=== PATIENT | male | born 1995 | race Two or more races ===

== ENCOUNTER 2020-10-26 18:55 | Emergency (ER) | payer MEDICAID ==
[~2020-10-26] VITALS: Ht 177.8 cm; Wt 79.0 kg
[2020-10-26] MEDS ORDERED: ACETAMINOPHEN 500MG TABLET PO ONE (21:45)
[2020-10-26] MEDS ORDERED: OLANZAPINE 10 MG/VIAL IM ONE (21:45)
[2020-10-26 22:02] LABS: HEMATOCRIT. 35.8 % (42.0-52.0); HEMOGLOBIN. 11.8 g/dL (14.0-18.0); MEAN CORPUSCULAR HEMOGLOBIN 27.3 pg (28.0-32.0); MEAN CORPUSCULAR VOLUME 83.2 fL (80.0-94.0); MEAN PLATELET VOLUME 7.3 fl (7.4-10.4); PLATELET 237 x1000/uL (130-400)
[2020-10-26 22:08] LABS: CHLORIDE 105 mEq/L (98-107)
[2020-10-26 22:14] LABS: ETHANOL BLOOD < 10 mg/dL
[2020-10-26 22:30] LABS: PLATELET ESTIMATE NORMAL
[2020-10-27] MEDS ORDERED: IMIQ1CRE TP (02:21)
[2020-10-27 04:26] LABS: CLARITY URINE CLEAR (CLEAR); COLOR URINE YELLOW (YELLOW); KETONES URINE NEGATIVE (NEGATIVE); LEUKOCYTE ESTERASE URINE NEGATIVE (NEGATIVE); NITRITE URINE NEGATIVE (NEGATIVE); OCCULT BLOOD URINE NEGATIVE (NEGATIVE); PH URINE 6.5 (4.5-8.0); PROTEIN URINE NEGATIVE (NEGATIVE); SPECIFIC GRAVITY URINE 1.011 (1.005-1.030); UROBILINOGEN URINE 0.2 E.U./dL (0.2-1.0)
[2020-10-27 04:35] LABS: *AMPHETAMINES SCREEN URINE PRESUMTIVE POSITIVE (NEGATIVE); *BARBITURATES SCREEN URINE NEGATIVE (NEGATIVE)
[2020-10-27 04:36] LABS: *BENZODIAZEPINES SCREEN URINE NEGATIVE (NEGATIVE); *COCAINE SCREEN URINE NEGATIVE (NEGATIVE); OPIATES URINE SCREEN NEGATIVE (NEGATIVE); PHENCYCLIDINE URINE SCREEN NEGATIVE (NEGATIVE)
[2020-10-27 04:37] LABS: CANNABINOID URINE SCREEN NEGATIVE (NEGATIVE); METHADONE URINE SCREEN NEGATIVE (NEGATIVE)
[2020-10-27] MEDS ORDERED: ACETAMINOPHEN 500MG TABLET PO ONE (05:00)
[2020-10-28 11:19] VITALS: BP 115/75
== END 2020-10-28 11:35 | disposition home or self-care (01) ==
LOC: ER 19:03
DX: A63.0 Anogenital (venereal) warts (principal); R45.850 Homicidal ideations
CPT/HCPCS: 36415; 80053; 80320; 85025; 96372; 99285; J3490; G0480

== ENCOUNTER 2020-11-26 10:02 | Emergency (ER) | payer MEDICAID ==
[~2020-11-26] VITALS: Ht 172.7 cm; Wt 68.0 kg
[~2020-11-26 10:02] MED LIST: IMIQ1CRE TP
[2020-11-26 11:00] LABS: CHLORIDE 106 mEq/L (98-107)
[2020-11-26 11:05] LABS: ETHANOL BLOOD < 10 mg/dL
[2020-11-26 11:06] LABS: BASOPHILS % 0.4 % (0.0-2.0); EOSINOPHILS % 3.2 % (0.0-5.0); HEMATOCRIT. 36.3 % (42.0-52.0); HEMOGLOBIN. 12.5 g/dL (14.0-18.0); LYMPHOCYTES % 39.2 % (20.0-50.0); MEAN CORPUSCULAR VOLUME 81.6 fL (80.0-94.0); MEAN PLATELET VOLUME 7.2 fl (7.4-10.4); MONOCYTES % 8.6 % (2.0-8.0); NEUTROPHILS % 48.6 % (40.0-76.0); PLATELET 310 x1000/uL (130-400); RED BLOOD CELL COUNT 4.45 mill/uL (4.7-6.1); RED CELL DISTRIBUTION WIDTH 14.5 % (11.6-14.6)
[2020-11-26 11:47] LABS: CLARITY URINE CLEAR (CLEAR); COLOR URINE YELLOW (YELLOW); KETONES URINE TRACE (NEGATIVE); LEUKOCYTE ESTERASE URINE 1+ (NEGATIVE); NITRITE URINE NEGATIVE (NEGATIVE); OCCULT BLOOD URINE NEGATIVE (NEGATIVE); PROTEIN URINE NEGATIVE (NEGATIVE); SPECIFIC GRAVITY URINE 1.022 (1.005-1.030)
[2020-11-26 12:25] LABS: *AMPHETAMINES SCREEN URINE PRESUMTIVE POSITIVE (NEGATIVE); *BARBITURATES SCREEN URINE NEGATIVE (NEGATIVE); *BENZODIAZEPINES SCREEN URINE NEGATIVE (NEGATIVE); *COCAINE SCREEN URINE NEGATIVE (NEGATIVE); METHADONE URINE SCREEN NEGATIVE (NEGATIVE)
[2020-11-26 12:26] LABS: CANNABINOID URINE SCREEN NEGATIVE (NEGATIVE); OPIATES URINE SCREEN NEGATIVE (NEGATIVE); PHENCYCLIDINE URINE SCREEN NEGATIVE (NEGATIVE)
[2020-11-26] MEDS ORDERED: CYCL10TA7 MT (12:35)
[2020-11-26] MEDS ORDERED: CEPH500C2 MT (12:35)
[2020-11-26] MEDS ORDERED: IBUPROFEN 600MG TABLET PO ONE (12:45)
[2020-11-26 14:56] VITALS: BP 117/84
== END 2020-11-26 14:59 | disposition home or self-care (01) ==
LOC: ER 10:13
DX: T43.621A Poisoning by amphetamines, accidental (unintentional), initial encounter (principal); R20.8 Other disturbances of skin sensation; N30.90 Cystitis, unspecified without hematuria; M79.609 Pain in unspecified limb; M79.18 Myalgia, other site; R03.0 Elevated blood-pressure reading, without diagnosis of hypertension; Y92.89 Other specified places as the place of occurrence of the external cause
CPT/HCPCS: 36415; 80053; 80305; 80307; 80320; 80329; 81003; 85025; 99283; G0480

== ENCOUNTER 2021-01-08 16:40 | Inpatient (IN) | payer MEDICAID ==
[~2021-01-08] VITALS: Ht 193 cm; Wt 61.0 kg
[~2021-01-08 16:40] MED LIST changes: +CEPH500C2 MT; +CYCL10TA7 MT
[2021-01-09] MEDS ORDERED: ACETAMINOPHEN 325MG TABLET PO STA (03:24)
[2021-01-09] MEDS ORDERED: PIPERACILLIN/TAZ 3.375G PREMIX 50 ML IV ONE (03:30)
[2021-01-09] MEDS ORDERED: VANCOMYCIN 1 G PREMIX 200 ML IV ONE (03:30)
[2021-01-09 04:04] LABS: HEMATOCRIT. 35.2 % (42.0-52.0); HEMOGLOBIN. 11.7 g/dL (14.0-18.0); MEAN CORPUSCULAR VOLUME 81.4 fL (80.0-94.0); MEAN PLATELET VOLUME 6.8 fl (7.4-10.4); PLATELET 309 x1000/uL (130-400); RED BLOOD CELL COUNT 4.33 mill/uL (4.7-6.1); RED CELL DISTRIBUTION WIDTH 14.9 % (11.6-14.6)
[2021-01-09 04:10] LABS: CHLORIDE 103 mEq/L (98-107)
[2021-01-09 05:12] LABS: PLATELET ESTIMATE NORMAL
[2021-01-09] MEDS ORDERED: IOHEXOL-300 100 ML BOTTLE ONE (06:54)
[2021-01-09] MEDS ORDERED: ACETAMINOPHEN 325MG TABLET PO PRN (10:00)
[2021-01-09] MEDS ORDERED: ONDANSETRON HCL 4MG/2ML INJ IV PRN (10:00)
[2021-01-09] MEDS ORDERED: MORPHINE SULFATE 4 MG/ML CPJ (NOT FOR IM USE) IV ONE (10:15)
[2021-01-09] MEDS ORDERED: VANCOMYCIN 1 G PREMIX 200 ML IV SCH (14:00)
[2021-01-09] MEDS ORDERED: NALOXONE HCL 0.4MG/ML VIAL IV PRN (14:45)
[2021-01-09] MEDS: HYDROCODONE/ACETAMINOPHEN 5/325MG TABLET PO PRN (15:19)
[2021-01-09 21:48] VITALS: BP 130/71
[2021-01-10] VITALS: BP 136/68
[2021-01-10 00:12] LABS: *AMPHETAMINES SCREEN URINE PRESUMTIVE POSITIVE (NEGATIVE); *BARBITURATES SCREEN URINE NEGATIVE (NEGATIVE); *BENZODIAZEPINES SCREEN URINE NEGATIVE (NEGATIVE)
[2021-01-10 00:13] LABS: *COCAINE SCREEN URINE NEGATIVE (NEGATIVE); CANNABINOID URINE SCREEN NEGATIVE (NEGATIVE); METHADONE URINE SCREEN NEGATIVE (NEGATIVE); OPIATES URINE SCREEN PRESUMTIVE POSITIVE (NEGATIVE); PHENCYCLIDINE URINE SCREEN NEGATIVE (NEGATIVE)
[2021-01-10] MEDS: VANCOMYCIN 1 G PREMIX 200 ML IV SCH ×3 (00:22→17:19)
[2021-01-10] MEDS: HYDROCODONE/ACETAMINOPHEN 5/325MG TABLET PO PRN (01:16)
[2021-01-10 04:00] VITALS: BP 113/73
[2021-01-10 06:26] LABS: HEMOGLOBIN. 12.2 g/dL (14.0-18.0); MEAN CORPUSCULAR HEMOGLOBIN 27.2 pg (28.0-32.0); MEAN CORPUSCULAR VOLUME 82.7 fL (80.0-94.0); MEAN PLATELET VOLUME 7.2 fl (7.4-10.4); PLATELET 303 x1000/uL (130-400); RED BLOOD CELL COUNT 4.48 mill/uL (4.7-6.1); RED CELL DISTRIBUTION WIDTH 14.4 % (11.6-14.6)
[2021-01-10 06:33] LABS: CHLORIDE 102 mEq/L (98-107)
[2021-01-10 08:00] VITALS: BP 118/73
[2021-01-10 09:50] LABS: PLATELET ESTIMATE NORMAL
[2021-01-10 12:00] VITALS: BP 108/74
[2021-01-10] MEDS ORDERED: AZITHROMYCIN 500 MG TABLET PO NR (15:45)
[2021-01-10] MEDS ORDERED: CEFTRIAXONE 1 G PREMIX 50 ML IV SCH (15:45)
[2021-01-10 16:00] VITALS: BP 100/70
[2021-01-10] MEDS ORDERED: CEFTRIAXONE 1,000 MG in DEXTROSE 5% WATER 50 ML IV SCH (17:00)
[2021-01-10] MEDS: DOCUSATE SODIUM 100MG CAPSULE PO SCH (17:19)
[2021-01-10 20:00] VITALS: BP 105/53
[2021-01-11] VITALS: BP 110/60
[2021-01-11] MEDS: VANCOMYCIN 750 MG PREMIX 150 ML IV SCH ×2 (01:15→09:00)
[2021-01-11 04:00] VITALS: BP 109/65
[2021-01-11 08:00] VITALS: BP 117/77
[2021-01-11] MEDS: DOCUSATE SODIUM 100MG CAPSULE PO SCH (08:59)
[2021-01-11 09:11] LABS: ABSOLUTE EOSINOPHILS 0.1 x10E3/uL (0.0-0.4); ABSOLUTE LYMPHOCYTES 2.5 x10E3/uL (0.7-3.1); ABSOLUTE MONOCYTES 0.6 x10E3/uL (0.1-0.9); ABSOLUTE NEUTROPHILS 1.4 x10E3/uL (1.4-7.0); BASOPHILS 1 % (Not Estab.); HEMATOCRIT 39.5 % (37.5-51.0); HEMOGLOBIN 12.6 g/dL (13.0-17.7); IMMATURE GRANULOCYTES 1 % (Not Estab.); LYMPHOCYTES 52 % (Not Estab.); MEAN CORPUSCULAR HEMOGLOBIN 26.4 pg (26.6-33.0); MEAN CORPUSCULAR HGB CONC. 31.9 g/dL (31.5-35.7); MEAN CORPUSCULAR VOLUME 83 fL (79-97); MONOCYTES 13 % (Not Estab.); NEUTROPHILS 30 % (Not Estab.); PLATELETS 319 x10E3/uL (150-450); RBC 4.77 x10E6/uL (4.14-5.80); RED CELL DISTRIBUTION WIDTH 13.1 % (11.6-15.4); WBC 4.8 x10E3/uL (3.4-10.8)
[2021-01-11] MEDS ORDERED: DOXY100C42 MT (09:59)
[2021-01-11 12:00] VITALS: BP 113/80
[2021-01-11 13:10] LABS: % CD 3 POS. LYMPHOCYTES 92.3 % (57.5-86.2); % CD 8 POS. LYMPH 76.8 % (12.0-35.5); ABSOLUTE CD 3 2308 /uL (622-2402); ABSOLUTE CD 4 HELPER 325 /uL (359-1519); ABSOLUTE CD 8 SUPPRESSOR 1920 /uL (109-897); CD4/CD8 RATIO 0.17 (0.92-3.72)
[2021-01-11 15:55] VITALS: BP 113/80
== END 2021-01-11 16:27 | disposition home or self-care (01) | DRG 501 ==
LOC: ER 17:25 → MICUSO 01-09 04:44 → EDBEDREQ 01-09 04:47 → EDBEDREQTM 01-09 04:47 → 6EST 01-09 20:47
PROVIDERS: ADMIT Internal Medicine; ATTEND Internal Medicine
DX: N49.2 Inflammatory disorders of scrotum (principal); E43 Unspecified severe protein-calorie malnutrition; E87.1 Hypo-osmolality and hyponatremia; D64.9 Anemia, unspecified; F15.90 Other stimulant use, unspecified, uncomplicated; F12.90 Cannabis use, unspecified, uncomplicated; Z20.822 Contact with and (suspected) exposure to COVID-19; R59.0 Localized enlarged lymph nodes; A64 Unspecified sexually transmitted disease; Z79.2 Long term (current) use of antibiotics; Z79.899 Other long term (current) drug therapy; Z68.1 Body mass index [BMI] 19.9 or less, adult
CPT/HCPCS: 36415; 74177; 76870; 80048; 80053; 80202; 80305; 83605; 84145; 85025; 86359; 86360; 87426; 93976; 99285; J0696; J2270; J2405; J2543; J3370; J7040; J7060; Q9967